=== PATIENT | female | born 2000 | race Caucasian/White ===

== ENCOUNTER 2019-04-11 02:57 | Inpatient (IN) | payer SELFPAY ==
--- NOTE | 2019-04-11 03:51 | PDOC ---
Attending Attestation - Resident Resident Name: Ricardo Tejada - ED Attending Attestation I have performed the following: I have examined & evaluated the patient, The case was reviewed & discussed with the resident, I agree w/resident's findings & plan - HPI HPI: 04/11/19 05:15 see resident hpi - Physicial Exam PE: 04/11/19 05:15 agree with resident exam - Medical Decision Making 04/11/19 05:15 18-year-old female with self-reported history of sickle cell disease and recent positive blood cultures done at another facility presents with persistent nausea vomiting and diarrhea now present for 2 weeks Plan for labs, reculture, CT scan of the abdomen and pelvis Patient given doxycycline and ceftriaxone for broad coverage We will admit to medical service for further evaluation
--- NOTE | 2019-04-11 03:57 | PDOC ---
History of Present Illness <Keiko Giles - Last Filed: 04/11/19 08:43> - History of Present Illness Initial Comments: Ms. Augusto Limon is a 18 y/o female with PMH significant for sickle cell disease, presenting with abdominal pain that started 1 week ago. Reports nausea , vomiting and diffuse abdominal pain. Reports that she had a fever a few days ago that has since resolved. Denies headache, dizziness, chest pain, shortness of breath, dysuria, changes in stool, back pain, cough. Reports that she was treated at [facility] on Monday, but left AMA to care for her daughter. She was called today by the physician there to return to a hospital because her blood cultures were positive. <Ricardo Tejada - Last Filed: 04/11/19 19:10> - General Chief Complaint: Nausea/Vomiting Stated Complaint: VOMITING,ABDOMINALL PAIN Time Seen by Provider: 04/11/19 03:44 Past History <Keiko Giles - Last Filed: 04/11/19 08:43> - Psycho Social/Smoking Cessation Hx Smoking History: Never smoked Hx Alcohol Use: Yes Drug/Substance Use Hx: No <Ricardo Tejada - Last Filed: 04/11/19 19:10> - Past Medical History Allergies/Adverse Reactions: Allergies Allergy/AdvReac Type Severity Reaction Status Date / Time No Known Allergies Allergy Verified 04/11/19 03:25 Home Medications: Ambulatory Orders Folic Acid - 1 mg PO DAILY 04/11/19 Review of Systems - Review of Systems Comments:: GENERAL/CONSTITUTIONAL: Reports fever. No weakness._ HEAD, EYES, EARS, NOSE AND THROAT: No change in vision. No change in hearing. No sore throat._ CARDIOVASCULAR: No chest pain or shortness of breath_ RESPIRATORY: Denies cough, hemoptysis_ GASTROINTESTINAL: Reports abdominal pain, nausea, vomiting. No diarrhea or constipation._ GENITOURINARY: No dysuria, frequency, or change in urination._ MUSCULOSKELETAL: No joint or muscle swelling or pain. No neck or back pain._ SKIN: No rash_ NEUROLOGIC: No headache, vertigo, loss of consciousness, or change in strength/ sensation._ ENDOCRINE: No increased thirst. No abnormal weight change_ HEMATOLOGIC/LYMPHATIC: No anemia, easy bleeding, or history of blood clots._ ALLERGIC/IMMUNOLOGIC: No hives or skin allergy._ <Ricardo Tejada - Last Filed: 04/11/19 19:10> *Physical Exam - Vital Signs Last Vital Signs Temp Pulse Resp BP Pulse Ox 98.5 F 108 H 20 116/84 98 04/11/19 02:57 04/11/19 02:57 04/11/19 02:57 04/11/19 02:57 04/11/19 02:57 <Keiko Giles - Last Filed: 04/11/19 08:43> - Vital Signs Last Vital Signs Temp Pulse Resp BP Pulse Ox 98.5 F 108 H 20 116/84 98 04/11/19 02:57 04/11/19 02:57 04/11/19 02:57 04/11/19 02:57 04/11/19 02:57 - Physical Exam Comments: GENERAL: Awake, alert, and oriented to person/place/time, in no acute distress_ HEAD: No signs of trauma, normocephalic, atraumatic _ EYES: PERRLA, EOMI, sclera anicteric, conjunctiva clear_ ENT: Hearing grossly normal, nares patent, oropharynx clear without exudates. No uvular deviation. Moist mucosa_ NECK: Normal ROM, supple, no lymphadenopathy, JVD, or masses_ LUNGS: No distress, speaks in full sentences, clear to auscultation bilaterally _ HEART: Regular rate and rhythm, normal S1 and S2, no murmurs appreciated, peripheral pulses normal and equal bilaterally._ ABDOMEN: Soft, nontender, normoactive bowel sounds. No guarding, no rebound. No masses_ EXTREMITIES: Normal inspection, Normal range of motion, no edema. No clubbing or cyanosis_ NEUROLOGICAL: Cranial nerves II through XII grossly intact. Normal speech, normal gait, no focal sensorimotor deficits _ SKIN: Warm, Dry, normal turgor, no rashes or lesions noted_ <Ricardo Tejada - Last Filed: 04/11/19 19:10> ED Treatment Course - LABORATORY CBC & Chemistry Diagram: 04/11/19 05:10 04/11/19 05:29 - ADDITIONAL ORDERS Additional order review: Laboratory Results 04/11/19 04/11/19 04/11/19 05:35 05:35 05:29 Sodium Potassium Chloride Carbon Dioxide Anion Gap BUN Creatinine Est GFR (CKD-EPI)AfAm Est GFR (CKD-EPI)NonAf Random Glucose Calcium Total Bilirubin AST ALT Alkaline Phosphatase LD Total Total Protein Albumin Lipase Serum , Qual Negative Urine Color Dk yellow Urine Appearance Cloudy Urine pH 7.0 Ur Specific [place] 1.014 Urine Protein Negative Urine Glucose (UA) Negative Urine Ketones Negative Urine Blood Negative Urine Nitrite Negative Urine Bilirubin 1+ H Urine Urobilinogen 4.0 e.u/dl H Ur Leukocyte Esterase Trace Urine WBC (Auto) 4 Urine RBC (Auto) 8 Urine Casts (Auto) 9 U Epithel Cells (Auto) 18.8 Urine Bacteria (Auto) 342.1 Urine HCG, Qual Negative 04/11/19 05:29 Sodium 139 Potassium 4.6 Chloride 106 Carbon Dioxide 28 Anion Gap 5 L BUN 7.4 Creatinine 0.4 L Est GFR (CKD-EPI)AfAm 173.78 Est GFR (CKD-EPI)NonAf 149.94 Random Glucose 99 Calcium 8.0 L Total Bilirubin 3.3 H AST 85 H ALT 36 Alkaline Phosphatase 47 LD Total 882 H Total Protein 6.2 L Albumin 2.9 L Lipase 89 Serum , Qual Urine Color Urine Appearance Urine pH Ur Specific [place] Urine Protein Urine Glucose (UA) Urine Ketones Urine Blood Urine Nitrite Urine Bilirubin Urine Urobilinogen Ur Leukocyte Esterase Urine WBC (Auto) Urine RBC (Auto) Urine Casts (Auto) U Epithel Cells (Auto) Urine Bacteria (Auto) Urine HCG, Qual 04/11/19 05:10 RBC 2.82 L MCV 102.7 H MCHC 32.4 RDW 28.5 H MPV 10.6 Neutrophils % 25.4 L Lymphocytes % 66.7 H Monocytes % 5.4 Eosinophils % 1.3 Basophils % 1.2 - RADIOLOGY Radiology Studies Ordered: Category Date Time Status ABDOMEN & PELVIS CT W/O CONTR [CT] Stat CT Scan 04/11/19 07:18 Taken - Medications Given in the ED: ED Medications Discontinued Medications Generic Name Dose Route Start Last Admin Trade Name Freq PRN Reason Stop Dose Admin Piperacillin Sod/Tazobactam 100 mls @ 200 mls/hr 04/11/19 04:50 04/11/19 05: 44 Sod 4.5 gm/ Dextrose IVPB 04/11/19 05:19 Not Given ONCE ONE Protocol Ceftriaxone Sodium 1 gm/ 100 mls @ 200 mls/hr 04/11/19 05:05 04/11/19 06:15 Dextrose IVPB 04/11/19 05:34 200 mls/hr ONCE ONE Administration Doxycycline Hyclate 100 mg/ 100 mls @ 100 mls/hr 04/11/19 05:04 04/11/19 06: 33 Dextrose IVPB 04/11/19 06:03 Not Given ONCE ONE Doxycycline Hyclate 100 mg/ 100 mls @ 100 mls/hr 04/11/19 06:30 04/11/19 06: 42 Dextrose IVPB 04/11/19 07:29 100 mls/hr ONCE ONE Administration Metoclopramide HCl 10 mg 04/11/19 06:32 04/11/19 06:42 Reglan Injection - IVPUSH 04/11/19 06:33 10 mg ONCE ONE Administration Ondansetron HCl 4 mg 04/11/19 04:25 04/11/19 05:40 Zofran Injection IVPUSH 04/11/19 04:26 4 mg ONCE ONE Administration Sodium Chloride 1,000 ml 04/11/19 04:25 04/11/19 05:25 Normal Saline - IV 04/11/19 04:26 1,000 ml ONCE ONE Administration <Keiko Giles - Last Filed: 04/11/19 08:43> - LABORATORY CBC & Chemistry Diagram: 04/11/19 05:10 04/11/19 05:29 <Ricardo Tejada - Last Filed: 04/11/19 19:10> Medical Decision Making - Medical Decision Making 18F hx of sickle cell disease presenting with abdominal pain, nausea, and vomiting that started 1 week ago. Reports fever last week that has since resolved. Seen at outside hospital and treated for sickle cell crisis and bacteremia with augmentin. -CBC, CMP, lipase -CXR, EKG -CT abd/pelv w/ IV contrast -UA, UCx, Upreg -blood cx, stool cx -fluids -doxy, ceftriaxone -retic count 04/11/19 0700 Pt signed out to Dr. Giles. <Ricardo Tejada - Last Filed: 04/11/19 19:10> Discharge - Discharge Information Problems reviewed: Yes <Keiko Giles - Last Filed: 04/11/19 08:43> <Tejada,Ricardo - Last Filed: 04/11/19 19:10> - Discharge Information Clinical Impression/Diagnosis: Bacteremia, Sickle cell anemia Condition: Fair
[2019-04-11] MEDS ORDERED: SODIUM CHLORIDE 0.9% 500 ML INFUS.BAG IV ONE (04:25)
[2019-04-11] MEDS ORDERED: ONDANSETRON 4 MG/2 ML VIAL IVPUSH ONE (04:25)
[2019-04-11] MEDS ORDERED: ONDANSETRON 4 MG/2 ML VIAL ONE (04:38)
[2019-04-11] MEDS ORDERED: PIPERACILLIN/TAZOB 4.5 GM 4.5 GM in DEXTROSE 5%-WATER 100 ML IVPB ONE (04:50)
[2019-04-11] MEDS ORDERED: DOXYCYCLINE INJECTION 100 MG in DEXTROSE 5%-WATER - 100 ML IVPB ONE ×2 (05:04→06:30)
[2019-04-11] MEDS ORDERED: CEFTRIAXONE 1 GM in DEXTROSE 5%-WATER - 100 ML IVPB ONE (05:05)
[2019-04-11 05:28] LABS: BASO % 1.2 % (0-2.0); EOS % 1.3 % (0-4.5); HEMOGLOBIN 9.4 GM/dL (10.7-15.3); LYMPH % 66.7 % (8-40); MCH 33.3 pg (25.7-33.7); MCHC 32.4 g/dl (32.0-36.0); MEAN CELL VOLUME 102.7 fl (80-96); MEAN PLT VOLUME 10.6 fl (7.5-11.1); MONO % 5.4 % (3.8-10.2); NEUT % 25.4 % (42.8-82.8); PLATELET COUNT 252 K/MM3 (134-434); RBC 2.82 M/mm3 (3.60-5.2); RDW 28.5 % (11.6-15.6); WHITE BLOOD COUNT 15.3 K/mm3 (4.0-10.0)
[2019-04-11 06:02] LABS: EPI CELLS 18.8 /HPF (0-5/HPF); HYALINE CASTS 9 /lpf (0-8); URINE APPEARANCE CLOUDY; URINE BACTERIA 342.1 /hpf (NEGATIVE); URINE BILIRUBIN 1+ (NEGATIVE); URINE COLOR DK YELLOW; URINE GLUCOSE (UA) NEGATIVE (NEGATIVE); URINE KETONE NEGATIVE (NEGATIVE); URINE LEUK ESTERASE TRACE (NEGATIVE); URINE NITRITE NEGATIVE (NEGATIVE); URINE PROTEIN NEGATIVE (NEGATIVE); URINE RBC 8 /hpf (0-4); URINE UROBILINOGEN 4.0 E.U/dl mg/dL (0.2-1.0); URINE WBC 4 /hpf (0-5)
[2019-04-11] MEDS ORDERED: DOXYCYCLINE HYCLATE 100 MG VIAL ONE (06:11)
[2019-04-11] MEDS ORDERED: CEFTRIAXONE 1 GM/50 ML BAG ONE (06:11)
[2019-04-11 06:22] LABS: ALBUMIN 2.9 g/dl (3.4-5.0); BILIRUBIN,TOTAL 3.3 mg/dL (0.2-1); BLOOD UREA NITROGEN 7.4 mg/dL (7-18); CREATININE 0.4 mg/dL (0.55-1.3); POTASSIUM 4.6 mmol/L (3.5-5.1); TOT PROT 6.2 g/dl (6.4-8.2)
[2019-04-11] MEDS ORDERED: METOCLOPRAMIDE HCL INJECTION 10 MG/2 ML VIAL IVPUSH ONE (06:32)
[2019-04-11] MEDS ORDERED: METOCLOPRAMIDE HCL INJECTION 10 MG/2 ML VIAL ONE (06:35)
--- NOTE | 2019-04-11 07:06 | PDOC ---
*Physical Exam - Vital Signs Last Vital Signs Temp Pulse Resp BP Pulse Ox 98.5 F 108 H 20 116/84 98 04/11/19 02:57 04/11/19 02:57 04/11/19 02:57 04/11/19 02:57 04/11/19 02:57 ED Treatment Course - LABORATORY CBC & Chemistry Diagram: 04/11/19 05:10 04/11/19 05:29 - ADDITIONAL ORDERS Additional order review: Laboratory Results 04/11/19 04/11/19 04/11/19 05:35 05:35 05:29 Sodium Potassium Chloride Carbon Dioxide Anion Gap BUN Creatinine Est GFR (CKD-EPI)AfAm Est GFR (CKD-EPI)NonAf Random Glucose Calcium Total Bilirubin AST ALT Alkaline Phosphatase LD Total Total Protein Albumin Lipase Serum , Qual Negative Urine Color Dk yellow Urine Appearance Cloudy Urine pH 7.0 Ur Specific [place] 1.014 Urine Protein Negative Urine Glucose (UA) Negative Urine Ketones Negative Urine Blood Negative Urine Nitrite Negative Urine Bilirubin 1+ H Urine Urobilinogen 4.0 e.u/dl H Ur Leukocyte Esterase Trace Urine WBC (Auto) 4 Urine RBC (Auto) 8 Urine Casts (Auto) 9 U Epithel Cells (Auto) 18.8 Urine Bacteria (Auto) 342.1 Urine HCG, Qual Negative 04/11/19 05:29 Sodium 139 Potassium 4.6 Chloride 106 Carbon Dioxide 28 Anion Gap 5 L BUN 7.4 Creatinine 0.4 L Est GFR (CKD-EPI)AfAm 173.78 Est GFR (CKD-EPI)NonAf 149.94 Random Glucose 99 Calcium 8.0 L Total Bilirubin 3.3 H AST 85 H ALT 36 Alkaline Phosphatase 47 LD Total 882 H Total Protein 6.2 L Albumin 2.9 L Lipase 89 Serum , Qual Urine Color Urine Appearance Urine pH Ur Specific [place] Urine Protein Urine Glucose (UA) Urine Ketones Urine Blood Urine Nitrite Urine Bilirubin Urine Urobilinogen Ur Leukocyte Esterase Urine WBC (Auto) Urine RBC (Auto) Urine Casts (Auto) U Epithel Cells (Auto) Urine Bacteria (Auto) Urine HCG, Qual 04/11/19 05:10 RBC 2.82 L MCV 102.7 H MCHC 32.4 RDW 28.5 H MPV 10.6 Neutrophils % 25.4 L Lymphocytes % 66.7 H Monocytes % 5.4 Eosinophils % 1.3 Basophils % 1.2 - Medications Given in the ED: ED Medications Discontinued Medications Generic Name Dose Route Start Last Admin Trade Name Radha PRN Reason Stop Dose Admin Piperacillin Sod/Tazobactam 100 mls @ 200 mls/hr 04/11/19 04:50 04/11/19 05: 44 Sod 4.5 gm/ Dextrose IVPB 04/11/19 05:19 Not Given ONCE ONE Protocol Ceftriaxone Sodium 1 gm/ 100 mls @ 200 mls/hr 04/11/19 05:05 04/11/19 06:15 Dextrose IVPB 04/11/19 05:34 200 mls/hr ONCE ONE Administration Doxycycline Hyclate 100 mg/ 100 mls @ 100 mls/hr 04/11/19 05:04 04/11/19 06: 33 Dextrose IVPB 04/11/19 06:03 Not Given ONCE ONE Metoclopramide HCl 10 mg 04/11/19 06:32 04/11/19 06:42 Reglan Injection - IVPUSH 04/11/19 06:33 10 mg ONCE ONE Administration Ondansetron HCl 4 mg 04/11/19 04:25 04/11/19 05:40 Zofran Injection IVPUSH 04/11/19 04:26 4 mg ONCE ONE Administration Sodium Chloride 1,000 ml 04/11/19 04:25 04/11/19 05:25 Normal Saline - IV 04/11/19 04:26 1,000 ml ONCE ONE Administration Medical Decision Making - Medical Decision Making 04/11/19 07:[address] Tejada, will f/u CT abd/pelvis and CXR, admit. 04/11/19 08:42 CXR with no acute pathology. EKG normal sinus at 81 bpm, prolonged QTc at 485. Will f/u CT results, admit. 04/11/19 09:05 CT scan: 1. Right middle lobe atelectasis and borderline cardiomegaly. 2. Hepatosplenomegaly with heterogeneous spleen. 3. Intra-abdominal, retroperitoneal and mesenteric lymphadenopathy. 4. Trace free fluid within the cul-de-sac. 5. Edematous changes within the subcutaneous tissues of the abdomen and pelvis. Limited noncontrast examination as described above. Will admit patient. Discharge - Discharge Information Problems reviewed: Yes Clinical Impression/Diagnosis: Bacteremia, Sickle cell anemia Condition: Fair - Follow up/Referral - Patient Discharge Instructions - Post Discharge Activity
[2019-04-11 09:47] LABS: ANISOCYTOSIS 2+; MACROCYTOSIS 2+; PLATELET ESTIMATE NORMAL; TEAR DROP CELLS 1+
--- NOTE | 2019-04-11 10:34 | HP ---
CHIEF COMPLAINT: Abd pain, nausea, vomiting PCP: Outside provider ([facility]) HISTORY OF PRESENT ILLNESS: Patient is a 18 year old female with PMH of SCD who presents with diffuse abdominal pain associated with nausea and vomiting for 1.5 weeks. Abdominal pain is dull and constant. She reports 4-5 episodes of bilious, non-bloody vomiting per day, associated both with and without eating. Vomiting exacerbates her abdominal pain and is often associated with non-bloody diarrhea. She complains of decreased appetite but has been able to keep fluids down. Pt denies fevers, chills, or any urinary symptoms. No sick contacts. Of note, patient was admitted at [facility] one week ago for these symptoms but left AMA to take care of her son. She came to [place] to get help from family and received a call from the hospital this morning that her blood cultures were positive and she should go to the nearest hospital. Patient complains of low back pain and joint pain, which is how her crises typically begin. She reports she received 2units RBC at [facility]. Patient has had numerous Sickle Cell Crises since childhood (multiple per year) and her last crisis was one year ago while she was . She denies any bone pain at this time and states "this is not a crisis". She does not currently see a physician regularly for her SCD as she recently moved. Only medication is 400mg folic acid daily which she is compliant with. Recent Travel: Denies PAST MEDICAL HISTORY: Sickle cell disease PAST SURGICAL HISTORY: Cholecystectomy in 2006 Social History: Smoking: denies Alcohol: occasional Drugs: denies Lives with in [place]. Student, does not work at this time. Sexually active with her . Allergies No Known Allergies Allergy (Verified 04/11/19 03:25) HOME MEDICATIONS: REVIEW OF SYSTEMS CONSTITUTIONAL: generalized weakness, loss of appetite Absent: fever, chills, diaphoresis, malaise, weight change HEENT: Absent: rhinorrhea, nasal congestion, throat pain, throat swelling, difficulty swallowing, mouth swelling, ear pain, eye pain, visual changes CARDIOVASCULAR: Absent: chest pain, syncope, palpitations, irregular heart rate, lightheadedness , peripheral edema RESPIRATORY: Absent: cough, shortness of breath, dyspnea with exertion, orthopnea, wheezing, stridor, hemoptysis GASTROINTESTINAL: abdominal pain, nausea, vomiting, diarrhea Absent: abdominal distension, constipation, melena, hematochezia GENITOURINARY: Absent: dysuria, frequency, urgency, hesitancy, hematuria, flank pain, genital pain MUSCULOSKELETAL: Absent: myalgia, arthralgia, joint swelling, back pain, neck pain SKIN: Absent: rash, itching, pallor HEMATOLOGIC/IMMUNOLOGIC: Absent: easy bleeding, easy bruising, lymphadenopathy, frequent infections ENDOCRINE: Absent: unexplained weight gain, unexplained weight loss, heat intolerance, cold intolerance NEUROLOGIC: Absent: headache, focal weakness or paresthesias, dizziness, unsteady gait, seizure, mental status changes, bladder or bowel incontinence PSYCHIATRIC: Absent: anxiety, depression, suicidal or homicidal ideation, hallucinations. PHYSICAL EXAMINATION Vital Signs - 24 hr 04/11/19 04/11/19 02:57 10:15 Temperature 98.5 F Pulse Rate 108 H Pulse Rate [ 73 Right Radial] Respiratory 20 16 Rate Blood Pressure 116/84 Blood Pressure 114/55 L [Left Arm] O2 Sat by Pulse 98 100 Oximetry (%) GENERAL: Awake, alert, and fully oriented, in no acute distress. HEAD: Normal with no signs of trauma. EYES: Pupils equal, round and reactive to light, extraocular movements intact, sclera anicteric, conjunctiva clear. No lid lag. EARS, NOSE, THROAT: Ears normal, nares patent, oropharynx clear without exudates. Moist mucous membranes. NECK: Normal range of motion, supple without lymphadenopathy, JVD, or masses. LUNGS: Breath sounds equal, clear to auscultation bilaterally. No wheezes, and no crackles. No accessory muscle use. HEART: Regular rate and rhythm, normal S1 and S2 without murmur, rub or gallop. ABDOMEN: Soft, nontender, not distended, normoactive bowel sounds, no guarding, no rebound, no masses. No hepatomegaly or splenomegaly. Scars from lap choley well healed. RECTAL: No external or internal hemorrhoids palpated. No masses. Good sphincter tone. No blood on glove. GENITOURINARY: No blood or vaginal discharge. MUSCULOSKELETAL: Normal range of motion at all joints. No bony deformities or tenderness. No CVA tenderness. UPPER EXTREMITIES: 2+ pulses, warm, well-perfused. No cyanosis. No clubbing. No peripheral edema. LOWER EXTREMITIES: 2+ pulses, warm, well-perfused. No calf tenderness. No peripheral edema. NEUROLOGICAL: Cranial nerves II-XII intact. Normal speech. Normal gait. PSYCHIATRIC: Cooperative. Good eye contact. Appropriate mood and affect. SKIN: Warm, dry, normal turgor, no rashes or lesions noted, normal capillary refill. Laboratory Results - last 24 hr CBC, BMP 04/11/19 05:10 04/11/19 05:29 Urine Test Results Urine Color Dk yellow Urine Appearance Cloudy Urine pH 7.0 (5.0-8.0) Ur Specific [place] 1.014 (1.010-1.035) Urine Protein Negative (NEGATIVE) Urine Glucose (UA) Negative (NEGATIVE) Urine Ketones Negative (NEGATIVE) Urine Blood Negative (NEGATIVE) Urine Nitrite Negative (NEGATIVE) Urine Bilirubin 1+ (NEGATIVE) H Ur Leukocyte Esterase Trace (NEGATIVE) Hepatic Panel Total Bilirubin 3.3 mg/dL (0.2-1) H AST 85 U/L (15-37) H ALT 36 U/L (13-61) Alkaline Phosphatase 47 U/L (45-117) Albumin 2.9 g/dl (3.4-5.0) L ASSESSMENT/PLAN: Patient is a 18 year old female with PMH of SCD who presents with diffuse abdominal pain associated with nausea and vomiting for 1.5 weeks. #Bacteremia, unknown source Likely GI given symptoms of persistent abd pain, nausea, vomiting, diarrhea Obtained records from [facility]: blood positive for gram positive rods, likely contaminated. Will confirm with blood cx taken on admission Received 1gm ceftriaxone daily and 100mg doxycyline BID Start Zosyn 4.5gm Q8H empirically CTAP: hepatosplenomegaly, edematous changes in subcutaneous tissue, trace fluid in cul-de-sac Pelvic/vaginal US F/u urine, blood, and stool cx F/u FOBT and stool O&P GI consult (Dr. Sorenson) ID consult (Dr. Lovelace) #Sickle cell crisis Hgb: 9.4, retic count: 15.64, LDH: 882, T bili: 3.3, D Bili: 0.4 Reports receiving 2units at hospitalization, baseline Hgb 7-8 F/u haptoglobin, INR Concern that pt is actively hemolyzing, closely monitor IV Tylenol for pain Heme/onc consulted (Dr. Mcclelland) #Cardiomegaly Incidental finding on CTAP Echo: normal size and function, no valvular abnormalities, EF: 55-60% #Prolonged QTc EKG: NSR, no ischemic changes, QTc: 485 Avoid zofran and other prolonging medications #DVT ppx SCDs #FEN IV NS @ 150ml/hr Clear liquid diet, advance as tolerated #Dispo Monitor on med-surg Visit type - Emergency Visit Emergency Visit: Yes ED Registration Date: 04/11/19 Care time: The patient presented to the Emergency Department on the above date and was hospitalized for further evaluation of their emergent condition. - New Patient This patient is new to me today: Yes Date on this admission: 04/11/19 - Critical Care Critical Care patient: No ATTENDING PHYSICIAN STATEMENT I saw and evaluated the patient. I reviewed the resident's note and discussed the case with the resident. I agree with the resident's findings and plan as documented. SUBJECTIVE: OBJECTIVE: ASSESSMENT AND PLAN:
--- NOTE | 2019-04-11 11:00 | PN ---
Teaching Attending Note Name of Resident: Sruthi Bernal ATTENDING PHYSICIAN STATEMENT I saw and evaluated the patient. I reviewed the resident's note and discussed the case with the resident. I agree with the resident's findings and plan as documented. SUBJECTIVE: 18 yof with PMhx of Sickle cell disease, normal vaginal delivery 8 months ago with uneventful post course, comes with 1.5 weeks of nausea, multiple episodes of non bloody watery vomitus and diarrhea and minimal oral intake associated with abdominal pain, reports more of generalized squeezing sensation that follows the vomiting episodes. Also c/o abdominal bloating/distension. Fevers/chills earlier, now resolved. Was admitted to [facility] Monday, but left AMA to take care of her child. reportedly was called by the hospital for 'bacteria in blood' and advised to come back. Currently with ongoing GI symptoms but no further fevers. Pos sore throat, from persistent vomiting. no cough, dyspnea, sputum, chest pain, palpitations, urinary symptoms, headache, neck pain, recent travel, sick contacts, antibiotics prior to recent hospital stay in [place]. Also c/o low back pain and bilateral knee and elbow pain this weekend which is usually how her crisis starts. Also reports receiving 2 units of PRBC transfusion at [facility]. OBJECTIVE: Vital Signs Period Temp Pulse Resp BP Sys/Peralta Pulse Ox Last 24 Hr 98.5 F 73-108 16-20 114-116/55-84 98-100 Intake & Output 04/08/19 04/09/19 04/10/19 04/11/19 23:59 23:59 23:59 23:59 Weight 150 lb GENERAL: Awake, alert, and fully oriented, in no acute distress. HEAD: Normal with no signs of trauma. EYES: Pupils equal, round and reactive to light, extraocular movements intact, sclera anicteric, conjunctiva clear. No lid lag. EARS, NOSE, THROAT: Ears normal, nares patent, oropharynx clear without exudates. Dry mucous membranes. NECK: Normal range of motion, supple, supple, no masses or lymphadenoapathy appreciated LUNGS: Breath sounds equal, clear to auscultation bilaterally. No wheezes, and no crackles. No accessory muscle use. HEART: Regular rate and rhythm, normal S1 and S2 , no murmur or rub appreciated ABDOMEN: Soft, RMQ/LMQ tendernss, no CVA or suprapubic tenderness, no voluntary or involuntary guarding or rigidity, pos bowel sounds, no fluid wave appreciated. MUSCULOSKELETAL: Normal range of motion at all joints. No bony deformities or tenderness. No CVA tenderness, no visible joint swelling/erythema or limitation of ROM noted. UPPER EXTREMITIES: 2+ pulses, warm, well-perfused. No cyanosis. No clubbing. No peripheral edema. LOWER EXTREMITIES: 2+ pulses, warm, well-perfused. No calf tenderness. No peripheral edema. NEUROLOGICAL: AAOx3, facial symmetry, tongue midline, Cranial nerves II-XII intact. Normal speech. Gait no observed PSYCHIATRIC: Cooperative. Good eye contact. Appropriate mood and affect. SKIN: Warm, dry, normal turgor, no rashes or lesions noted, normal capillary refill. Home Medications Medication Instructions Recorded Folic Acid - 1 mg PO DAILY 04/11/19 Active Medications Sodium Chloride (Normal Saline -) 1,000 mls @ 150 mls/hr IV ASDIR ABY Last Admin: 04/11/19 12:10 Dose: 150 mls/hr Ceftriaxone Sodium 1 gm/ (Dextrose) 50 mls @ 100 mls/hr IVPB DAILY ABY Doxycycline Hyclate 100 mg/ (Dextrose) 100 mls @ 100 mls/hr IVPB BID ABY Laboratory Results - last 24 hr 04/11/19 04/11/19 04/11/19 05:10 05:10 05:29 WBC 15.3 H RBC 2.82 L Hgb 9.4 L Hct 29.0 L MCV 102.7 H MCH 33.3 MCHC 32.4 RDW 28.5 H Plt Count 252 MPV 10.6 Absolute Neuts (auto) 3.9 Neutrophils % 25.4 L Neutrophils % (Manual) 26.5 L Band Neutrophils % 2.9 Lymphocytes % 66.7 H Lymphocytes % (Manual) 50.0 H Monocytes % 5.4 Monocytes % (Manual) 8 Eosinophils % 1.3 Eosinophils % (Manual) 2.0 Basophils % 1.2 Basophils % (Manual) 0.0 Myelocytes % (Man) 0 Promyelocytes % (Man) 0 Blast Cells % (Manual) 0 Nucleated RBC % 1 H Metamyelocytes 1 Hypochromia 0 Platelet Estimate Normal Polychromasia 2+ Poikilocytosis 1+ Anisocytosis 2+ Microcytosis 1+ Macrocytosis 2+ Tear Drop Cells 1+ Retic Count 15.64 H* Sodium 139 Potassium 4.6 Chloride 106 Carbon Dioxide 28 Anion Gap 5 L BUN 7.4 Creatinine 0.4 L Est GFR (CKD-EPI)AfAm 173.78 Est GFR (CKD-EPI)NonAf 149.94 Random Glucose 99 Calcium 8.0 L Phosphorus 3.9 Magnesium 2.3 Total Bilirubin 3.3 H Direct Bilirubin 0.4 H AST 85 H ALT 36 Alkaline Phosphatase 47 LD Total 882 H Total Protein 6.2 L Albumin 2.9 L Lipase 89 Serum , Qual Urine Color Urine Appearance Urine pH Ur Specific [place] Urine Protein Urine Glucose (UA) Urine Ketones Urine Blood Urine Nitrite Urine Bilirubin Urine Urobilinogen Ur Leukocyte Esterase Urine WBC (Auto) Urine RBC (Auto) Urine Casts (Auto) U Epithel Cells (Auto) Urine Bacteria (Auto) Urine HCG, Qual 04/11/19 04/11/19 04/11/19 05:29 05:35 05:35 WBC RBC Hgb Hct MCV MCH MCHC RDW Plt Count MPV Absolute Neuts (auto) Neutrophils % Neutrophils % (Manual) Band Neutrophils % Lymphocytes % Lymphocytes % (Manual) Monocytes % Monocytes % (Manual) Eosinophils % Eosinophils % (Manual) Basophils % Basophils % (Manual) Myelocytes % (Man) Promyelocytes % (Man) Blast Cells % (Manual) Nucleated RBC % Metamyelocytes Hypochromia Platelet Estimate Polychromasia Poikilocytosis Anisocytosis Microcytosis Macrocytosis Tear Drop Cells Retic Count Sodium Potassium Chloride Carbon Dioxide Anion Gap BUN Creatinine Est GFR (CKD-EPI)AfAm Est GFR (CKD-EPI)NonAf Random Glucose Calcium Phosphorus Magnesium Total Bilirubin Direct Bilirubin AST ALT Alkaline Phosphatase LD Total Total Protein Albumin Lipase Serum , Qual Negative Urine Color Dk yellow Urine Appearance Cloudy Urine pH 7.0 Ur Specific [place] 1.014 Urine Protein Negative Urine Glucose (UA) Negative Urine Ketones Negative Urine Blood Negative Urine Nitrite Negative Urine Bilirubin 1+ H Urine Urobilinogen 4.0 e.u/dl H Ur Leukocyte Esterase Trace Urine WBC (Auto) 4 Urine RBC (Auto) 8 Urine Casts (Auto) 9 U Epithel Cells (Auto) 18.8 Urine Bacteria (Auto) 342.1 Urine HCG, Qual Negative CT A/P images reviewed EKG : NSR, Prolonged QTc CXR no acute process ASSESSMENT AND PLAN: 18 yof with PMhx sickle cell disease admitted with nausea/vomiting/diarrhea, reported Gm neg bacteremia and 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 [place] input. Retrieve prior records/Blood cx results from [facility] in [place]. Pelvic/transvaginal US. Influenza screen/Parvovirus. Stool studies, GI input. Aggressive hydration, monitor volume status. Pain control with tylenol. Opioids with caution if worsening pain or concerns. hematology input. Reports receiving 2 units PRBC on recent hospital stay and baseline Hb around 7- 8. Monitor for now. Check haptoglobin, PT/INR. Check 2D echo, monitor Qtc. Caution with QTc prolonging medications. RLL atelectasis on imaging but no respiratory symptoms. Monitor for now. DVTPPX lovenox Dispo pending clinical improvement. Admit to med surg Plan discussed with patient in detail, all questions answered. total admit time 65 min.
[2019-04-11 11:24] LABS: BILIRUBIN,DIRECT 0.4 mg/dL (0.0-0.2); MAGNESIUM 2.3 mg/dL (1.8-2.4); PHOSPHOROUS 3.9 mg/dL (2.5-4.9)
--- NOTE | 2019-04-11 11:47 | EKG ---
Test Reason : Blood Pressure : / mmHG Vent. Rate : 081 BPM Atrial Rate : 081 BPM P-R Int : 186 ms QRS Dur : 086 ms QT Int : 418 ms P-R-T Axes : 053 040 039 degrees QTc Int : 485 ms NORMAL SINUS RHYTHM PROLONGED QT ABNORMAL ECG NO PREVIOUS ECGS AVAILABLE Confirmed by NOHEMY GAN MD ([id number]) on 04/11/2019 11:47:41 AM Referred By: Confirmed By:NOHEMY GAN MD
[2019-04-11] MEDS ORDERED: PROCHLORPERAZINE MALEATE 5 MG TABLET PO ONE (12:00)
[2019-04-11] MEDS: SODIUM CHLORIDE 1,000 ML IV SCH (12:10)
[2019-04-11 12:34] VITALS: BMI 29.2
--- NOTE | 2019-04-11 12:50 | ECHO ---
Name: SANDIE HARRISNA Raza Exam:Adult Echocardiogram Study Date: 04/11/2019 11:30 AM Age: 18 yrs Reason For Study: cardiomegaly Height: 64 in Weight: 150 lb BSA: 1.7 m2 MMode/2D Measurements & Calculations IVSd: 0.79 cm Ao root diam: 2.2 cm LVIDd: 4.5 cm LA dimension: 3.4 cm LVIDs: 3.0 cm LVPWd: 0.88 cm LVPWs: 1.2 cm EDV(Teich): 92.0 ml ESV(Teich): 34.2 ml Doppler Measurements & Calculations MV E max rubens: 101.2 cm/sec Ao V2 max: 180.3 cm/sec MV A max rubens: 49.9 cm/sec Ao max P.0 mmHg MV E/A: 2.0 AI P1/2t: 442.2 msec MV dec time: 0.18 sec AI max rubens: 412.6 cm/sec LV V1 max P.8 mmHg AI max P.1 mmHg LV V1 max: 109.1 cm/sec AI dec slope: 273.3 cm/sec2 PA V2 max: 125.6 cm/sec Med Peak E' Rubens: 9.6 cm/sec PA max P.3 mmHg Med E/e': 10.6 Lat Peak E' Rubens: 12.8 cm/sec Lat E/e': 7.9 Procedure A complete two-dimensional transthoracic echocardiogram was performed (2D, M-mode, Doppler and color flow Doppler). Left Ventricle The left ventricular size, thickness and function are normal. The left ventricular ejection fraction is normal. Ejection Fraction = 55-60%. The left ventricular wall motion is normal. Right Ventricle The right ventricle is normal in size and function. Atria Normal left and right atrial size and function. Mitral Valve There is no mitral regurgitation noted. Tricuspid Valve No tricuspid regurgitation. There was insufficient TR detected to calculate RV systolic pressure. Aortic Valve No hemodynamically significant valvular aortic stenosis. Trace aortic regurgitation. Pulmonic Valve There is no pulmonic valvular regurgitation. Great Vessels The aortic root is normal size. Pericardium/Pleura There is no pericardial effusion. Interpretation Summary The left ventricular size, thickness and function are normal The right ventricle is normal in size and function. Trace aortic regurgitation. MD Dillon Talavera 04/11/2019 12:49 PM
[2019-04-11] MEDS ORDERED: PIPERACILLIN/TAZOB 4.5 GM 4.5 GM in DEXTROSE 5%-WATER 100 ML IVPB SCH (14:00)
[2019-04-11] MEDS ORDERED: PIPERACILLIN/TAZOBACTAM 4.5 GM VIAL IVPB ONE (15:22)
[2019-04-11] MEDS ORDERED: DEXTROSE 5%-WATER 100 ML IVPB ONE (15:23)
[2019-04-11] MEDS ORDERED: PROMETHAZINE HCL 25 MG TABLET PO ONE (16:00)
--- NOTE | 2019-04-11 16:11 | CON.GI ---
Consult Consult Specialty:: GI Referred by:: Hospitalist Service Reason for Consultation:: ? bacteremia - History of Present Illness Chief Complaint: Shoulder and knee pain History of Present Illness: 18F, Lives in [place], [place] hospital this past Mon-Mon due to sickle cell crisis symptoms, had to sign out AMA on monday because she didn't have anyone to watch her daughter. Came to [place] so that a family member can watch her daughter. Called to evaluate bacteremia. No + blood culture here as of yet. She denies abdominal pain. She complains of nausea. She states having had diarrhea for a week. Her nurse does not report any diarrhea today. She has never had an upper endoscopy or colonoscopy. She had a Lap Alice at age 5. Current lab work suggestive of hemolysis. CT scan revealed hepatosplenomegaly, edematous changes along the abdominal wall and a surgical clip in the pelvis (? if dropped from cholecystectomy). She denies any other surgeries. She vomited x 3 today. She smokes marijuana and last smoked 1 month ago. - History Source History Provided By: Patient, Medical Record - Past Medical History ...LMP: 03/28/19 ...: No Heme/Onc: Yes: Sickle Cell Disease - Past Surgical History Past Surgical History: Yes: Cholecystectomy (Laparoscopic, age 5) - Alcohol/Substance Use Hx Alcohol Use: Yes - Smoking History Smoking history: Never smoked Have you smoked in the past 12 months: No - Social History Usual Living Arrangement: With Significant Other ADL: Independent Occupation: Unemployed. Student Place of : [employer] History of Recent Travel: No Home Medications - Allergies Allergies/Adverse Reactions: Allergies Allergy/AdvReac Type Severity Reaction Status Date / Time No Known Allergies Allergy Verified 04/11/19 03:25 - Home Medications Home Medications: Ambulatory Orders Folic Acid - 1 mg PO DAILY 04/11/19 Family Medical History Other Family History: Father: Alive: Sickle Cell Trait. Mother: Alive: Sickle Cell Trait. 3 1/2 brothers: healthy. 2 1/2 sisters: healthy. 1 daughter: healthy. No family history of colorectal cancer, celiac disease, IBD Review of Systems - Review of Systems Constitutional: denies: Fever, Unintentional Wgt. Loss Cardiovascular: denies: Chest Pain Respiratory: denies: SOB Gastrointestinal: reports: Diarrhea, Nausea, Vomiting. denies: Abdominal Pain, Melena, Rectal Bleeding Musculoskeletal: reports: Back Pain, Joint Pain Physical Exam-GI Vital Signs: Vital Signs Temperature 98.4 F 04/11/19 13:36 Pulse Rate 74 04/11/19 13:36 Respiratory Rate 20 04/11/19 13:36 Blood Pressure 107/68 04/11/19 13:36 O2 Sat by Pulse Oximetry (%) 100 04/11/19 10:15 Constitutional: Yes: Calm Eyes: No: Sclera Icterus Cardiovascular: Yes: Regular Rate and Rhythm, Murmur (2/6 systolic murmur heard at the RSB>LSB) Respiratory: Yes: CTA Bilaterally Gastrointestinal Inspection: Yes: Scars (healed trochar scars). No: Distention ...Auscultate: Yes: Normoactive Bowel Sounds ...Palpate: Yes: Soft. 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 ID evaluation and follow-up of current blood culture Code(s): R78.81 - BACTEREMIA (2) Nausea Assessment/Plan: ? if secondary to systemic illness. Liver chemistry pattern suggestive of hemolytic process. Heme w/u and w/u per primary team. Obtain ABD US and hepatitis serologies Ordered urine tox Diet as tolerated Code(s): R11.0 - NAUSEA (3) Diarrhea Assessment/Plan: Check stool for C. diff, culture, O&P if diarrhea persists Code(s): R19.7 - DIARRHEA, UNSPECIFIED
--- NOTE | 2019-04-11 16:41 | PN ---
Progress Note (short form) - Note Progress Note: ID CONSULT DICTATED + BC P. ACNES LIKELY SKIN CONTAMINANT REPEAT BC SENT; ECHO NEGATIVE NO ANTIBIOTICS ADVISED HIV TESTING IF STATUS UNKNOWN
[2019-04-11 16:55] LABS: INR 1.12 (0.83-1.09); PROTHROMBIN TIME (PATIENT) 13.2 SEC (9.7-13.0)
[2019-04-11] MEDS: HEPARIN NA (PORCINE) 5,000 UNITS/ML 1ML VIAL SQ SCH ×2 (17:24→21:20)
--- NOTE | 2019-04-11 17:29 | CONS ---
INFECTIOUS DISEASE CONSULTATION DATE OF CONSULTATION: 04/11/2019 The patient is a 18-year-old female, history of sickle cell disease, who is evaluated for positive blood culture. She was admitted to [facility] on April 05, 2019, with a suspected sickle cell crisis. She was transfused packed red blood cells. She developed fever and hypotension which was felt to possibly be a transfusion reaction. Blood cultures were obtained. She was discharged on April 07. The following day, blood cultures turned positive. She was advised to present to the nearest emergency room. Patient was admitted to [facility]. Blood cultures have now been finalized as P. acnes. She was empirically treated with doxycycline, ceftriaxone, and Zosyn for possible bacteremia/sepsis. The patient complains of abdominal pain, nausea, vomiting, and diarrhea for the past 1-2 weeks. She has no complaints of any skin infections. She has not had recent surgery. No history of shoulder surgery specifically. No prosthetic joints, endovascular devices, or CSF shunts. PAST MEDICAL HISTORY: Positive for sickle cell disease. PAST SURGICAL HISTORY: Status post cholecystectomy. ALLERGIES: No known allergies. LABORATORY DATA: White count 15.3; neutrophils 25, lymphocytes 66; hematocrit 29.0; platelet count 252. Creatinine 0.4. Echocardiogram negative for vegetations. PHYSICAL EXAMINATION: General: She is awake and alert. She is in moderate distress secondary to abdominal complaints. Vital Signs: Temperature 98.4; blood pressure 107/68; pulse 74, regular; respirations 20 per minute. HEENT: Sclerae anicteric. Heart: Sounds S1, S2. A 2/6 pansystolic murmur. Lungs: Clear. Abdomen: Soft, mild diffuse tenderness. Extremities: Negative for edema. Skin: No skin lesions noted. IMPRESSION: 1. Sickle cell crisis. 2. Positive blood cultures for Propionibacterium acnes, likely skin contaminant. Positive blood culture likely represents skin contamination. Doubt invasive, deep-seated infection in the absence of any recent surgery, specifically shoulder surgery, presence of orthopedic hardware, endovascular devices, or CSF shunt. No treatment is advised. Repeat blood cultures have been done. Will ask the microbiology lab to keep them for 2 weeks for P. acnes. No antibiotic therapy advised. JAYESH WHITE M.D. [id number]
[2019-04-11] MEDS ORDERED: MORPHINE SULFATE 2 MG/ML VIAL IVPUSH PRN (21:33)
[2019-04-11] MEDS ORDERED: DOXYCYCLINE INJECTION 100 MG in DEXTROSE 5%-WATER - 100 ML IVPB SCH (22:00)
--- NOTE | 2019-04-12 00:12 | PN ---
Progress Note (short form) - Note Progress Note: Patient seen and examined c/o back pain, diffuse abdominal pain Now feeling like crisis AFVSS Cor: RSR, No murmurs, No gallops Lungs: Clear to P&A Abd: Soft, Normal bowel sounds, No organomegaly Ext:No significant edema Labs/Meds reviewed A/P 18 y/o patient withh/o sickle cell disease, admitted with ? + blood cx , noted due=ring her trip to [place] at [facility] Blood cx pending here On emporic zosyn Abnormal LFTs? sickling Also with LDH--800s Also with medenteric adenopathy noted on CT a/p Plan: 1. Acute vasoocclusive crisis -- IV hydration/pain control Monitor LFTS/abdominal pain. No signs of acute chest 2. Incentive spironetry 3. DVT prophylaxis 4. MEsenteric adenopathy . ? check chest CT. Need to monitor this and further w/ u based on clinical course
[2019-04-12] MEDS ORDERED: PROCHLORPERAZINE MALEATE 5 MG TABLET PO ONE (00:15)
[2019-04-12] MEDS: SODIUM CHLORIDE 1,000 ML IV SCH ×4 (03:52→18:50)
[2019-04-12] MEDS: HEPARIN NA (PORCINE) 5,000 UNITS/ML 1ML VIAL SQ SCH ×3 (06:02→21:27)
[2019-04-12 08:20] LABS: BASO % 0.5 % (0-2.0); EOS % 1.3 % (0-4.5); HEMATOCRIT 30.4 % (32.4-45.2); LYMPH % 65.2 % (8-40); MCH 34.3 pg (25.7-33.7); MCHC 32.9 g/dl (32.0-36.0); MEAN CELL VOLUME 104.5 fl (80-96); MEAN PLT VOLUME 10.1 fl (7.5-11.1); PLATELET COUNT 235 K/MM3 (134-434); RBC 2.91 M/mm3 (3.60-5.2); RDW 26.7 % (11.6-15.6)
[2019-04-12 08:57] LABS: ALBUMIN 2.6 g/dl (3.4-5.0); BLOOD UREA NITROGEN 7.8 mg/dL (7-18); CALCIUM 7.7 mg/dL (8.5-10.1); CREATININE 0.3 mg/dL (0.55-1.3); MAGNESIUM 2.1 mg/dL (1.8-2.4); PHOSPHOROUS 3.3 mg/dL (2.5-4.9); POTASSIUM 3.6 mmol/L (3.5-5.1); TOT PROT 5.1 g/dl (6.4-8.2)
[2019-04-12] MEDS ORDERED: CEFTRIAXONE 1 GM in DEXTROSE 5%-WATER - 50 ML IVPB SCH (10:00)
[2019-04-12] MEDS ORDERED: POTASSIUM CHLORIDE TABS 20 MEQ TABLET.ER (FP) PO ONE (10:26)
[2019-04-12] MEDS ORDERED: ACETAMINOPHEN 1000 MG/100 ML VIAL (NON FORMULARY) IVPB PRN (10:30)
[2019-04-12] MEDS: FOLIC ACID 1 MG TABLET (FP) PO SCH (10:40)
--- NOTE | 2019-04-12 11:24 | PN ---
Physical Exam: SUBJECTIVE: Patient seen and examined. Pt reports one episode of bilious emesis overnight. No diarrhea. Tolerating diet well. Bone pain is controlled. OBJECTIVE: Vital Signs Period Temp Pulse Resp BP Sys/Peralta Pulse Ox Last 24 Hr 97.9 F-98.9 F 70-95 20-20 107-117/62-68 GENERAL: The patient is awake, alert, and fully oriented, in no acute distress. HEAD: Normal with no signs of trauma. EYES: PERRL, extraocular movements intact, sclera anicteric, conjunctiva clear. No ptosis. ENT: Ears normal, nares patent, oropharynx clear without exudates, moist mucous membranes. NECK: Trachea midline, full range of motion, supple. LUNGS: Breath sounds equal, clear to auscultation bilaterally, no wheezes, no crackles, no accessory muscle use. HEART: Regular rate and rhythm, S1, S2 without murmur, rub or gallop. ABDOMEN: Soft, nontender, nondistended, normoactive bowel sounds, no guarding, no rebound, no hepatosplenomegaly, no masses. EXTREMITIES: 2+ pulses, warm, well-perfused, no edema. NEUROLOGICAL: Cranial nerves II through XII grossly intact. Normal speech, gait not observed. PSYCH: Normal mood, normal affect. SKIN: Warm, dry, normal turgor, no rashes or lesions noted Laboratory Results - last 24 hr CBC, BMP 04/12/19 07:50 04/12/19 07:50 Active Medications Acetaminophen (Ofirmev Injection -) 1,000 mg IVPB Q6H PRN PRN Reason: PAIN Last Admin: 04/12/19 10:41 Dose: 1,000 mg Folic Acid (Folic Acid -) 1 mg PO DAILY [facility] Last Admin: 04/12/19 10:40 Dose: 1 mg Heparin Sodium (Porcine) (Heparin -) 5,000 unit SQ TID [facility] Last Admin: 04/12/19 06:02 Dose: Not Given Sodium Chloride (Normal Saline -) 1,000 mls @ 75 mls/hr IV ASDIR [facility] Last Admin: 04/12/19 07:42 Dose: Not Given ASSESSMENT/PLAN: Patient is a 18 year old female with PMH of SCD who presents with diffuse abdominal pain associated with nausea and vomiting for 1.5 weeks. #Bacteremia, unknown source Likely GI given symptoms of persistent abd pain, nausea, vomiting, diarrhea Obtained records from [place]: blood positive for p. acnes, likely contaminated. Will confirm with blood cx taken on admission Antibiotics d/c'ed per [place] CTAP: hepatosplenomegaly, edematous changes in subcutaneous tissue, trace fluid in cul-de-sac Pelvic/vaginal US: R small ovarian cyst F/u urine, blood, and stool cx F/u FOBT and stool O&P GI consult (Dr. Sorenson): recommend Utox, abd US, and hepatitis panel ID consult (Dr. Lovelace): D/c antibiotics #Sickle cell crisis Hgb: 9.4, retic count: 15.64, LDH: 882, T bili: 3.3, D Bili: 0.4 Reports receiving 2units at hospitalization, baseline Hgb 7-8 F/u haptoglobin, INR Concern that pt is actively hemolyzing, closely monitor IV Tylenol for pain Heme/onc following (Dr. Mcclelland) #Cardiomegaly Incidental finding on CTAP Echo: normal size and function, no valvular abnormalities, EF: 55-60% #Prolonged QTc EKG: NSR, no ischemic changes, QTc: 485 Avoid zofran and other prolonging medications #DVT ppx Heparin TID #FEN IV NS @ 75ml/hr Advanced to full diet #Dispo Monitor on med-surg Visit type - Emergency Visit Emergency Visit: No - New Patient This patient is new to me today: No - Critical Care Critical Care patient: No ATTENDING PHYSICIAN STATEMENT I saw and evaluated the patient. I reviewed the resident's note and discussed the case with the resident. I agree with the resident's findings and plan as documented. SUBJECTIVE: OBJECTIVE: ASSESSMENT AND PLAN:
--- NOTE | 2019-04-12 11:53 | PN ---
Teaching Attending Note Name of Resident: Sruthi Bernal ATTENDING PHYSICIAN STATEMENT I saw and evaluated the patient. I reviewed the resident's note and discussed the case with the resident. I agree with the resident's findings and plan as documented with exceptions below. SUBJECTIVE: Patient seen and examined. no nausea, vomiting or diarrhea, no abdominal pain, requesting to eat. pain symptoms improved. OBJECTIVE: Vital Signs Period Temp Pulse Resp BP Sys/Peralta Pulse Ox Last 24 Hr 97.9 F-98.9 F 70-95 20-20 107-117/62-68 Intake & Output 04/09/19 04/10/19 04/11/19 04/12/19 23:59 23:59 23:59 23:59 Intake Total 300 900 Balance 300 900 Weight 150 lb General: sitting in bed, comfortable, no acute distress Neck: soft, supple Chest: CTAB, no rales or wheezing Abdomen:Soft, NT throughout, ND, pos bowel sounds Extremities: no edema Home Medications Medication Instructions Recorded Folic Acid - 1 mg PO DAILY 04/11/19 Active Medications Acetaminophen (Ofirmev Injection -) 1,000 mg IVPB Q6H PRN PRN Reason: PAIN Last Admin: 04/12/19 10:41 Dose: 1,000 mg Folic Acid (Folic Acid -) 1 mg PO DAILY PENDING SALE TO [facility] Last Admin: 04/12/19 10:40 Dose: 1 mg Heparin Sodium (Porcine) (Heparin -) 5,000 unit SQ TID PENDING SALE TO [facility] Last Admin: 04/12/19 06:02 Dose: Not Given Sodium Chloride (Normal Saline -) 1,000 mls @ 75 mls/hr IV ASDIR PENDING SALE TO [facility] Last Admin: 04/12/19 07:42 Dose: Not Given Laboratory Results - last 24 hr 04/11/19 04/12/19 04/12/19 15:51 07:50 07:50 WBC 14.0 H RBC 2.91 L Hgb 10.0 L Hct 30.4 L MCV 104.5 H MCH 34.3 H MCHC 32.9 RDW 26.7 H Plt Count 235 MPV 10.1 Absolute Neuts (auto) 3.5 Neutrophils % 25.0 L Lymphocytes % 65.2 H Monocytes % 8.0 Eosinophils % 1.3 Basophils % 0.5 Nucleated RBC % 0 PT with INR 13.20 H INR 1.12 H Sodium 140 Potassium 3.6 Chloride 109 H Carbon Dioxide 26 Anion Gap 4 L BUN 7.8 Creatinine 0.3 L Est GFR (CKD-EPI)AfAm 191.03 Est GFR (CKD-EPI)NonAf 164.82 Random Glucose 124 H Calcium 7.7 L Phosphorus 3.3 Magnesium 2.1 Total Bilirubin 3.0 H AST 37 ALT 26 Alkaline Phosphatase 38 L Total Protein 5.1 L Albumin 2.6 L Vitamin B12 Serum Folate 14 TSH 0.61 04/12/19 07:50 WBC RBC Hgb Hct MCV MCH MCHC RDW Plt Count MPV Absolute Neuts (auto) Neutrophils % Lymphocytes % Monocytes % Eosinophils % Basophils % Nucleated RBC % PT with INR INR Sodium Potassium Chloride Carbon Dioxide Anion Gap BUN Creatinine Est GFR (CKD-EPI)AfAm Est GFR (CKD-EPI)NonAf Random Glucose Calcium Phosphorus Magnesium Total Bilirubin AST ALT Alkaline Phosphatase Total Protein Albumin Vitamin B12 270 Serum Folate TSH Microbiology 04/11/19 05:35 Urine - Urine Clean Catch Urine Culture - Final NO GROWTH OBTAINED 04/11/19 05:10 Blood - Peripheral Venous Blood Culture - Preliminary NO GROWTH OBTAINED AFTER 24 HOURS, INCUBATION TO CONTINUE FOR 4 DAYS. 04/11/19 05:10 Blood - Peripheral Venous Blood Culture - Preliminary NO GROWTH OBTAINED AFTER 24 HOURS, INCUBATION TO CONTINUE FOR 4 DAYS. 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 ID input noted, off abx, follow up repeat blood cx, neg so far. Clinically doing well, no nausea/vomiting/diarrhea noted inhouse. Patient asking to eat. Advance to regular diet, GI input noted, f/u abdo US/hep panel. Hematology input noted. Patient with Geovani in 4s, retic count 17 and hb 5.1 at [facility], currently improved labs. Doing well. Also concerns about frequent ED visits with pain and received Oxycodone prescription in [place]. [facility] registry reviewed # [id number], last narcotics in 07/2018. Currently asymptomatic, will d/c morphine, additional opioids prn based on clinical course. IV tylenol prn. EKG to monitor QTc. 2D echo noted, no concerns for cardiomegaly. Stressed need for regular hematology follow up, patient relays understanding and has follow up arranged in [place] Dc in 24 hours if blood cx neg and no new concerns. Discussed with patient and nursing.
[2019-04-12 11:58] LABS: COCAINE, UR NEGATIVE ng/ml (CUTOFF=300); METHADONE, UR NEGATIVE ng/ml (CUTOFF=300); PHENCYCLIDINE,URINE NEGATIVE ng/ml (CUTOFF=25); URINE AMPHETAMINES NEGATIVE ng/ml (CUTOFF=500); URINE BARBITURATES NEGATIVE ng/ml (CUTOFF=200); URINE BENZODIAZEPINES NEGATIVE ng/ml (CUTOFF=200)
[2019-04-12 12:02] LABS: OPIATES, URI POSITIVE ng/ml (CUTOFF=300)
--- NOTE | 2019-04-12 12:13 | PN ---
Progress Note (short form) - Note Progress Note: Patient seen and examined Complains of nausea Prior notes reviewed No diarrhea and cultures negative to date Last Vital Signs Temp Pulse Resp BP Pulse Ox 98.9 F 95 H 20 117/63 100 04/12/19 06:00 04/12/19 06:00 04/12/19 06:00 04/12/19 06:00 04/11/19 10:15 HEENT: JANINE, EOM Intact ?icteric Oropharynx: No thrush, No mucositis Neck: Supple Nodes-no cervical, supraclavicular or axillary nodes Cor: RSR, No murmurs, No gallops Lungs: Poor inspiratory effort ; diminished breath sounds bilaterally Abd: Soft, Normal bowel sounds, No organomegaly Ext:No significant edema Skin: No rashes, Integument intact CBC, BMP 04/12/19 07:50 04/12/19 07:50 Abnormal Lab Results 04/11/19 04/12/19 04/12/19 15:51 07:50 07:50 WBC 14.0 H RBC 2.91 L Hgb 10.0 L Hct 30.4 L MCV 104.5 H MCH 34.3 H RDW 26.7 H Neutrophils % 25.0 L Lymphocytes % 65.2 H PT with INR 13.20 H INR 1.12 H Chloride 109 H Anion Gap 4 L Creatinine 0.3 L Random Glucose 124 H Calcium 7.7 L Total Bilirubin 3.0 H Alkaline Phosphatase 38 L Total Protein 5.1 L Albumin 2.6 L Opiates Screen U Marijuana (THC) Screen 04/12/19 11:00 WBC RBC Hgb Hct MCV MCH RDW Neutrophils % Lymphocytes % PT with INR INR Chloride Anion Gap Creatinine Random Glucose Calcium Total Bilirubin Alkaline Phosphatase Total Protein Albumin Opiates Screen Positive A* U Marijuana (THC) Screen Positive A* Retic-15% Impression Sickle cell disease by history GI complaints of nausea, emesis, diarrhea- improved + blood culture im [place] --? significance RPN adenopathy Hepatosplenomegaly +marijuana and opiods on 04/12 ---did receive morphine on 04/11 It would be unusual to have splenomegaly with SS diseease - typicall y SS is associated with auto infarction . May have another variant of sickle disease Abseemce of target cells aainst thaassemia or C disease-- Will need Hemoglobin electrophoresls RPM - needs to be followed up after acute GI process resolves - Not typical for Sickle disease . To check LDH, retic, cbc LFT's- improved
--- NOTE | 2019-04-12 13:50 | EKG ---
Test Reason : Blood Pressure : / mmHG Vent. Rate : 076 BPM Atrial Rate : 076 BPM P-R Int : 176 ms QRS Dur : 072 ms QT Int : 392 ms P-R-T Axes : 050 040 048 degrees QTc Int : 441 ms NORMAL SINUS RHYTHM WITH SINUS ARRHYTHMIA WHEN COMPARED WITH ECG OF 11-APR-2019 06:47, NO SIGNIFICANT CHANGE WAS FOUND Confirmed by JAYESH MCKNIGHT MD ([id number]) on 04/12/2019 1:49:52 PM Referred By: Confirmed By:JAYESH MCKNIGHT MD
[2019-04-12 14:45] LABS: ANISOCYTOSIS 0; MACROCYTOSIS 1+; PLATELET ESTIMATE NORMAL; TARGET CELLS 1+
[2019-04-12] MEDS: METOCLOPRAMIDE HCL INJECTION 10 MG/2 ML VIAL IVPUSH PRN (18:50)
[2019-04-12] MEDS: MAG HYDROX/AL HYDROX/SIMETH 30 ML UNIT-DOSE CUP PO PRN (18:50)
[2019-04-12] MEDS: PANTOPRAZOLE SODIUM 40 MG VIAL IVPUSH SCH (18:50)
[2019-04-13] MEDS: HEPARIN NA (PORCINE) 5,000 UNITS/ML 1ML VIAL SQ SCH ×2 (05:55→14:00)
[2019-04-13] MEDS: MAG HYDROX/AL HYDROX/SIMETH 30 ML UNIT-DOSE CUP PO PRN (06:09)
[2019-04-13] MEDS: METOCLOPRAMIDE HCL INJECTION 10 MG/2 ML VIAL IVPUSH PRN (06:09)
[2019-04-13 07:57] VITALS: BP 101/50; PULSE 85; TEMP 98.2
[2019-04-13 08:23] LABS: RETICULOCYTES 10.44 % (0.5-1.5)
[2019-04-13 08:24] LABS: BASO % 0.4 % (0-2.0); HEMATOCRIT 29.8 % (32.4-45.2); HEMOGLOBIN 9.7 GM/dL (10.7-15.3); LYMPH % 61.6 % (8-40); MCH 33.3 pg (25.7-33.7); MCHC 32.5 g/dl (32.0-36.0); MEAN CELL VOLUME 102.3 fl (80-96); MEAN PLT VOLUME 10.4 fl (7.5-11.1); MONO % 9.5 % (3.8-10.2); NEUT % 26.5 % (42.8-82.8); PLATELET COUNT 264 K/MM3 (134-434); RBC 2.91 M/mm3 (3.60-5.2); RDW 26.3 % (11.6-15.6)
[2019-04-13 08:43] LABS: ALBUMIN 2.4 g/dl (3.4-5.0); BILIRUBIN,TOTAL 2.6 mg/dL (0.2-1); BLOOD UREA NITROGEN 6.5 mg/dL (7-18); CALCIUM 7.5 mg/dL (8.5-10.1); CREATININE 0.2 mg/dL (0.55-1.3); POTASSIUM 3.6 mmol/L (3.5-5.1); TOT PROT 4.5 g/dl (6.4-8.2)
[2019-04-13] MEDS: PANTOPRAZOLE SODIUM 40 MG VIAL IVPUSH SCH (09:03)
[2019-04-13] MEDS: SODIUM CHLORIDE 1,000 ML IV SCH (09:03)
[2019-04-13] MEDS: FOLIC ACID 1 MG TABLET (FP) PO SCH (09:03)
--- NOTE | 2019-04-13 10:17 | PN ---
Teaching Attending Note Name of Resident: Fanny Puga ATTENDING PHYSICIAN STATEMENT I saw and evaluated the patient. I reviewed the resident's note and discussed the case with the resident. I agree with the resident's findings and plan as documented with exceptions below. SUBJECTIVE: patient seen and examiend, reports nausea, also concerned about vomiting, but none reported by nursing. Tolerating diet well. cheese and crackers box emptied , at her bedside. OBJECTIVE: Vital Signs Period Temp Pulse Resp BP Sys/Peralta Pulse Ox Last 24 Hr 97.9 F-98.2 F 82-93 16-20 101-118/48-72 100-100 Intake & Output 04/10/19 04/11/19 04/12/19 04/13/19 23:59 23:59 23:59 23:59 Intake Total 300 3100 Balance 300 3100 Weight 150 lb General: sitting in bed, no acute distress Neck: soft, supple, no JVD Chest: CTAB, no rales or wheezing Abdomen:soft, NT, ND, pos bowel sounds extremities: no edema Home Medications Medication Instructions Recorded Folic Acid - 1 mg PO DAILY 04/11/19 Metoclopramide HCl [Reglan] 5 mg PO QID #28 tablet 04/13/19 Pantoprazole Sodium [Protonix] 40 mg PO DAILY #30 tablet. 04/13/19 Active Medications Acetaminophen (Ofirmev Injection -) 1,000 mg IVPB Q6H PRN PRN Reason: PAIN Last Admin: 04/12/19 10:41 Dose: 1,000 mg Al Hydroxide/Mg Hydroxide (Mylanta Oral Suspension -) 30 ml PO Q6H PRN PRN Reason: DYSPEPSIA Last Admin: 04/13/19 06:09 Dose: 30 ml Folic Acid (Folic Acid -) 1 mg PO DAILY ABY Last Admin: 04/13/19 09:03 Dose: 1 mg Heparin Sodium (Porcine) (Heparin -) 5,000 unit SQ TID ABY Last Admin: 04/13/19 05:55 Dose: Not Given Sodium Chloride (Normal Saline -) 1,000 mls @ 75 mls/hr IV ASDIR ABY Last Admin: 04/13/19 09:03 Dose: 75 mls/hr Metoclopramide HCl (Reglan Injection -) 10 mg IVPUSH Q8H PRN PRN Reason: NAUSEA AND/OR VOMITING Last Admin: 04/13/19 06:09 Dose: 10 mg Pantoprazole Sodium (Protonix Iv) 40 mg IVPUSH DAILY ABY Last Admin: 04/13/19 09:03 Dose: 40 mg Laboratory Results - last 24 hr 04/11/19 04/12/19 04/12/19 15:51 07:50 07:50 WBC RBC Hgb Hct MCV MCH MCHC RDW Plt Count MPV Absolute Neuts (auto) Neutrophils % Neutrophils % (Manual) 20.4 L Band Neutrophils % 0.0 Lymphocytes % Lymphocytes % (Manual) 48.0 H Monocytes % Monocytes % (Manual) 5 Eosinophils % Eosinophils % (Manual) 4.1 D Basophils % Basophils % (Manual) 1.0 D Myelocytes % (Man) 0 Promyelocytes % (Man) 0 Blast Cells % (Manual) 0 Nucleated RBC % Metamyelocytes 0 D Hypochromia 0 Platelet Estimate Normal Platelet Comment Present Polychromasia 0 Poikilocytosis 1+ Anisocytosis 0 Microcytosis 0 Macrocytosis 1+ Target Cells 1+ Stomatocytes 1+ Retic Count Haptoglobin < 10 L Sodium Potassium Chloride Carbon Dioxide Anion Gap BUN Creatinine Est GFR (CKD-EPI)AfAm Est GFR (CKD-EPI)NonAf Random Glucose Calcium Magnesium Total Bilirubin AST ALT Alkaline Phosphatase LD Total Total Protein Albumin Stool Occult Blood Opiates Screen Methadone Screen Barbiturate Screen Phencyclidine Screen Ur Amphetamines Screen MDMA (Ecstasy) Screen Benzodiazepines Screen Cocaine Screen U Marijuana (THC) Screen Hep C Ab Diagnostic 0.1 04/12/19 04/13/19 04/13/19 11:00 03:20 07:43 WBC 12.0 H RBC 2.91 L Hgb 9.7 L Hct 29.8 L MCV 102.3 H MCH 33.3 MCHC 32.5 RDW 26.3 H Plt Count 264 MPV 10.4 Absolute Neuts (auto) 3.2 Neutrophils % 26.5 L Neutrophils % (Manual) Band Neutrophils % Lymphocytes % 61.6 H Lymphocytes % (Manual) Monocytes % 9.5 Monocytes % (Manual) Eosinophils % 2.0 Eosinophils % (Manual) Basophils % 0.4 Basophils % (Manual) Myelocytes % (Man) Promyelocytes % (Man) Blast Cells % (Manual) Nucleated RBC % 0 Metamyelocytes Hypochromia Platelet Estimate Platelet Comment Polychromasia Poikilocytosis Anisocytosis Microcytosis Macrocytosis Target Cells Stomatocytes Retic Count Haptoglobin Sodium Potassium Chloride Carbon Dioxide Anion Gap BUN Creatinine Est GFR (CKD-EPI)AfAm Est GFR (CKD-EPI)NonAf Random Glucose Calcium Magnesium Total Bilirubin AST ALT Alkaline Phosphatase LD Total Total Protein Albumin Stool Occult Blood Negative Opiates Screen Positive A* Methadone Screen Negative Barbiturate Screen Negative Phencyclidine Screen Negative Ur Amphetamines Screen Negative MDMA (Ecstasy) Screen Negative Benzodiazepines Screen Negative Cocaine Screen Negative U Marijuana (THC) Screen Positive A* Hep C Ab Diagnostic 04/13/19 04/13/19 07:43 07:43 WBC RBC Hgb Hct MCV MCH MCHC RDW Plt Count MPV Absolute Neuts (auto) Neutrophils % Neutrophils % (Manual) Band Neutrophils % Lymphocytes % Lymphocytes % (Manual) Monocytes % Monocytes % (Manual) Eosinophils % Eosinophils % (Manual) Basophils % Basophils % (Manual) Myelocytes % (Man) Promyelocytes % (Man) Blast Cells % (Manual) Nucleated RBC % Metamyelocytes Hypochromia Platelet Estimate Platelet Comment Polychromasia Poikilocytosis Anisocytosis Microcytosis Macrocytosis Target Cells Stomatocytes Retic Count 10.44 H* D Haptoglobin Sodium 139 Potassium 3.6 Chloride 109 H Carbon Dioxide 27 Anion Gap 4 L BUN 6.5 L Creatinine 0.2 L Est GFR (CKD-EPI)AfAm 218.29 Est GFR (CKD-EPI)NonAf 188.34 Random Glucose 101 Calcium 7.5 L Magnesium 2.0 Total Bilirubin 2.6 H AST 34 ALT 22 Alkaline Phosphatase 33 L LD Total 429 H Total Protein 4.5 L Albumin 2.4 L Stool Occult Blood Opiates Screen Methadone Screen Barbiturate Screen Phencyclidine Screen Ur Amphetamines Screen MDMA (Ecstasy) Screen Benzodiazepines Screen Cocaine Screen U Marijuana (THC) Screen Hep C Ab Diagnostic Microbiology 04/11/19 05:10 Blood - Peripheral Venous Blood Culture - Preliminary NO GROWTH OBTAINED AFTER 48 HOURS, INCUBATION TO CONTINUE FOR 3 DAYS. 04/11/19 05:10 Blood - Peripheral Venous Blood Culture - Preliminary NO GROWTH OBTAINED AFTER 48 HOURS, INCUBATION TO CONTINUE FOR 3 DAYS. 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 reports nausea. No diarrhea or vomiting noted inhouse. Has been tolerating diet well (emptied packet of cheese and crackers noted at her bedside) WBC improved. Abdominal exam benign. GI input noted. Supportive treatment with reglan/PPI/maalox and outpatient f.u Drug screen noted. Strongly counseled to avoid cannabis as could be contributing to her nausea/vomiting episodes. Stool C difficile sent but unlikely. Hematology input noted. Patient counseled on need for close hematology follow up for sickle cell disease, lymphadenopathy and additional imaging as indicated. dc home today pending above Discussed with patient and nursing.
[2019-04-13 13:18] LABS: ANISOCYTOSIS 1+; MACROCYTOSIS 0; OVALOCYTE 1+; PLATELET ESTIMATE NORMAL; TARGET CELLS 1+; TEAR DROP CELLS 1+
[2019-04-13 20:08] LABS: HEP B CORE AB, TOT Negative (Negative)
[2019-04-17 16:07] LABS: HGB SOLUBILITY Positive (Negative); Hgb C 0 % (0.0); Hgb F 7.5 % (0.0-2.0); Hgb S 66.7 % (0.0)
== END 2019-04-13 15:02 | disposition home or self-care (01) | DRG 662 ==
LOC: JER 02:57 → JERBED 08:44 → J6S 10:57
PROVIDERS: ADMIT Hospitalist; ATTEND Hospitalist
DX: D57.00 Hb-SS disease with crisis, unspecified (principal); R94.31 Abnormal electrocardiogram [ECG] [EKG]; I51.7 Cardiomegaly; R11.2 Nausea with vomiting, unspecified; R19.7 Diarrhea, unspecified; R16.2 Hepatomegaly with splenomegaly, not elsewhere classified; E86.0 Dehydration; F11.90 Opioid use, unspecified, uncomplicated; F12.90 Cannabis use, unspecified, uncomplicated; J98.11 Atelectasis; R59.0 Localized enlarged lymph nodes; N83.201 Unspecified ovarian cyst, right side
CPT/HCPCS: 36415; 71045-TC-FY; 74176-TC; 76830-TC; 76856-TC; 80053; 80307; 81003; 82248; 82272; 82607; 82746; 83010; 83021; 83615; 83690; 83735; 84100; 84443; 84703; 85025; 85044; 85610; 85651; 85660; 86704; 86706; 86707; 86708; 86709; 86803; 87040; 87086; 87340; 93005; 93010; 93306-TC; 99282-25; J0131; J7030